=== PATIENT | female | born 1970 | race Caucasian/White ===

== ENCOUNTER → 2016-12-01 | Outpatient (CLI) | payer OTHER ==
[~2016-12-01] MED LIST: GADAVIST IV PRN; TAMO20TA9 PO
[2016-12-01 13:21] LABS: LYME DISEASE AB IGG NEG (NEG)
[2016-12-01 13:23] LABS: LYME DISEASE AB IGM NEG (NEG)
--- NOTE | 2016-12-01 14:29 | DIAGNOSTIC IMAGING REPORT ---
BRAIN COMBO FOR TRIGEMINAL CLINICAL HISTORY: Cranial nerve disorder. Trigeminal neuralgia. Headaches. History of breast cancer. COMPARISON STUDY: MRI of the brain September 07, 2015. TECHNIQUE: Utilizing 1.5 Cassia magnet, multiplanar, multiecho imaging of the brain was performed pre and postcontrast administration with thin cut imaging through the skull base. Injection of 7.5 cc of Gadavist IV was uneventful. FINDINGS: There are no areas of restricted diffusion. No acute intracranial hemorrhage, midline shift or mass effect is present. There is no intracranial masses or pathologic enhancement. Flow-voids for the major intracranial vessels are present. Ventricular system is normal. Basilar cisterns are patent. There are no extra-axial collections. The previously described upper cervical lymph nodes are similar to exam of September 07, 2015. No enlarged lymph nodes are identified. There is moderate mucosal thickening of the right anterior ethmoid air cells and mild mucosal thickening of the right frontal sinuses. Calvarial signal is maintained. No masses or abnormal enhancement are noted along the course of the trigeminal nerves. IMPRESSION: 1. No acute intracranial findings. 2. No intracranial masses or pathologic enhancement. 3. Moderate right anterior ethmoid sinus mucosal thickening. Electronically signed by: Ben Denis M.D. 12/01/2016 2:27 PM Dictated Date/Time: 12/01/2016 1:54 PM
== END | disposition home or self-care (01) ==
LOC: C.MRI 11:53
PROVIDERS: ATTEND Psychiatry & Neurology Neurology
DX: G52.9 Cranial nerve disorder, unspecified (principal); R59.0 Localized enlarged lymph nodes; R51 Headache; Z85.3 Personal history of malignant neoplasm of breast

== ENCOUNTER → 2017-02-13 | Outpatient (CLI) | payer OTHER ==
[~2017-02-13] MED LIST changes: -GADAVIST IV PRN; +TAMO20TA47 PO; -TAMO20TA9 PO
--- NOTE | 2017-02-16 12:28 | MAMMOGRAPHY REPORT ---
BILATERAL DIGITAL SCREENING MAMMOGRAM TOMOSYNTHESIS WITH CAD: 02/13/2017 CLINICAL HISTORY: Asymptomatic. Personal history of breast cancer. TECHNIQUE: Breast tomosynthesis in addition to standard 2D mammography was performed. Current study was also evaluated with a Computer Aided Detection (CAD) system. COMPARISON: Comparison is made to exams dated: 01/21/2016 mammogram, 01/19/2015 mammogram, 09/02/2013 m ammogram, 07/21/2012 mammogram, 04/14/2012 ultrasound, and 04/14/2012 mammogram - [facility] enter. BREAST COMPOSITION: The tissue of both breasts is almost entirely fatty. FINDINGS: No suspicious masses, calcifications, or areas of architectural distortion are noted in ei ther breast. There has been no significant interval change compared to prior exams. There are stable postsurgical changes in the right 12:00 breast from prior lumpectomy. IMPRESSION: ACR BI-RADS CATEGORY 2: BENIGN There is no mammographic evidence of malignancy. A 1 year screening mammogram is recommended. The pa tient will receive written notification of the results. Approximately 10% of breast cancers are not detected with mammography. A negative mammographic report should not delay biopsy if a clinically suggestive mass is present. Marjorie Meléndez M.D. /:02/13/2017 14:56:45 Numerologist: Angeline JOE)(M), [facility] letter sent: Normal 1/2 BI-RADS Code: ACR BI-RADS Category 2: Benign
== END | disposition home or self-care (01) ==
LOC: C.MAMM 13:02
PROVIDERS: ATTEND Surgery
DX: Z12.31 Encounter for screening mammogram for malignant neoplasm of breast (principal); Z85.3 Personal history of malignant neoplasm of breast; Z08 Encounter for follow-up examination after completed treatment for malignant neoplasm

== ENCOUNTER → 2017-07-09 | Day surgery (SDC) | payer OTHER ==
[2017-06-29 11:38] VITALS: Ht 162.6 cm; Wt 72.7 kg
[~2017-07-09] VITALS: Ht 162.6 cm; Wt 72.7 kg
[~2017-07-09] MED LIST changes: +ATROPINE SULFATE 0.1 MG/ML 5ML SYR IV PRN; +BUPIVACAINE/EPINEPHRINE 0.25% 1:200,000 30 ML VIAL ONE; +CEFAZOLIN 1000MG IV PUSH 5 ML IV SCH; +DEXAMETHASONE SOD INJ 4 MG/ML VIAL ONE; +EpHEDrine SULFATE INJ 50 MG/ML AMP IV PRN; +EpINEphrine INJ 1MG/ML AMP 1 MG/ML AMP ONE; +FENTANYL CITRATE INJ 50 MCG/1 ML 2 ML VIAL IV PRN; +FENTANYL CITRATE INJ 50 MCG/1 ML 2 ML VIAL ONE; +IBUP-103 PO; +KETO10TA PO; +LACTATED RINGER'S 1000ML 1,000 ML IV SCH; +LIDOCAINE HCL 2% 2 ML VIAL (20MG/ML) ONE; +METHYLPREDNISOLONE ACETATE 80 MG/ML VIAL ONE; +MIDAZOLAM HCL 1 MG/ML 2ML VIAL ONE; +ONDANSETRON INJ 2 MG/ML 2 ML VIAL IV PRN; +ONDANSETRON INJ 2 MG/ML 2 ML VIAL ONE; +OXYC-57 PO; +OXYCODONE/ACETAMINOPHEN 5-325 TAB PO PRN; +PROPOFOL IV EMULSION 10 MG/ML 20 ML VIAL IV ONE; +ROPIVACAINE 0.5% 5 MG/ML 30 ML VIAL ONE; +SODIUM CHLORIDE 0.9% 1000ML 1,000 ML IV SCH; -TAMO20TA47 PO
--- NOTE | 2017-07-09 07:22 | History & Physical Bridge - [place] ---
H&P Re-Evaluation Bridge Note: I have examined the patient, reviewed the History & Physical and in the interval since the performance of the History & Physical I have noted the following changes of clinical significance: No changes noted
--- NOTE | 2017-07-09 09:38 | [facility] Post Operative Brief Note ---
Immediate Operative Summary Operative Date Jul 09, 2017. Pre-Operative Diagnosis Adhesive capsulitis left shoulder Post-Operative Diagnosis Same as preop Procedure(s) Performed Left Shoulder Arthroscopic Capsular Release Surgeon Dr. Morales Model Builder Surgeon(s) Garry Wylie PA-C Estimated Blood Loss 5 mL Findings as above Specimens None Complication(s) None Disposition Recovery Room / PACU
--- NOTE | 2017-07-09 09:51 | Discharge Instructions-SurgCtr ---
Discharge Instructions Date of Service Jul 09, 2017. Visit Reason for Visit: Adhesive Capsulitis Of Shoulder Discharge Discharge Diagnosis / Problem: SAME ABOVE Discharge Goals Goal(s): Decrease discomfort, Improve function Activity Recommendations Activity Limitations: as noted below Lifting Limitations: gradually increase as tolerated Exercise/Sports Limitations: gradually increase as tolerated Shower/Bathe: tomorrow Driving or Machine Use: WHEN OUT OF THE SLING AND OFF OF PAIN MEDICATIONS Anesthesia . Post Anesthesia Instructions: If you have had General Anesthesia or IV Sedation: * Do not drive today. * Resume driving when surgeon permits. * Do not make important decisions or sign legal documents today. * Call surgeon for: 1. Temperature elevations greater than 101 degrees F. 2. Uncontrollable pain. 3. Excessive bleeding. 4. Persistent nausea and vomiting. 5. Medication intolerance (nausea, vomiting or rash). * For nausea and vomiting use only clear liquids such as: tea, soda, bouillon until nausea subsides, then gradually increase diet as tolerated. * If you have any concerns or questions, call your surgeon's office. If physician is unavailable and it is an emergency, call 911 or go to the nearest emergency room. . Diet Recommendations Home Diet: no limitations Fluid Restriction: None Procedures Procedures Performed: Left Shoulder Arthroscopic Capsular Release Pending Studies Studies pending at discharge: no Work Instructions Return To Work: 3 days Medical Emergencies . Who to Call and When: Medical Emergencies: If at any time you feel your situation is an emergency, please call 911 immediately. . Non-Emergent Contact Non-Emergency issues call your: Primary Care Provider Call Non-Emergent contact if: you have a fever, temperature is above 101.5 . . "Provider Documentation" section prepared by Garry Wylie. .
--- NOTE | 2017-07-09 10:18 | OPERATIVE REPORT ---
DATE OF OPERATION: 07/09/2017 PREOPERATIVE DIAGNOSIS: Adhesive capsulitis of the left shoulder. POSTOPERATIVE DIAGNOSIS: Same. PROCEDURE: Left shoulder diagnostic arthroscopy with extensive debridement, lysis of adhesions and manipulation under anesthesia. SURGEON: Dr. Nilson Morales. REGISTERED CLINICAL DIETITIAN: Lucas Wylie PA-C, whose assistance was necessary for positioning the arm and helping with instrumentation. ANESTHESIA: General with a left interscalene nerve block. COMPLICATIONS: None. CONDITION: Stable to PACU. INDICATIONS: The patient is a pleasant 46-year-old female who presented to my office with increasing pain and tightness of her left shoulder. Clinical examination was diagnostic for adhesive capsulitis of the left shoulder. After failing conservative treatment, she elected to undergo arthroscopy. OPERATION AND FINDINGS: On 07/09/2017 she arrived at [facility] for the above procedure. She was seen in the preoperative holding area and the operative extremity was identified and signed. She was given a preoperative antibiotic and a left interscalene nerve block. She was taken back to the operating room, laid on the table in supine position and put under general anesthesia. The left shoulder was then prepped and draped in sterile fashion. Time-out was done and the patient and operative extremity was properly identified. On preoperative physical examination, she had about 80 degrees of abduction and 30 degrees of external rotation. A gentle manipulation was done under anesthesia to help facilitate insertion of the arthroscope. The scope was then placed in the posterior portal. Diagnostic arthroscopy showed no cartilage damage to the humeral head or the glenoid. There was no tearing of the rotator cuff and the biceps tendon went through a normal size biceps julia mechanism. There was significant redness and inflammation of the rotator interval, the middle and anterior inferior glenohumeral ligaments. An anterior portal was made. A shaver was used to start a debridement of some of the intraarticular structures and some of the fraying of the tissue from the manipulation. An ablator was then used to do a complete lysis of adhesions including opening up the entire rotator interval and the undersurface of the coracoid with care not to disrupt the biceps julia mechanism. The middle and anterior inferior glenohumeral ligaments were then carefully released with care not to disrupt the subscapularis or the axillary nerve. A shaver was used to do a debridement and remove frayed inflamed soft tissue fragments back to stable margins. Significant time was spent controlling hemostasis and ensuring complete release of adhesions and debridement of loose soft tissues. A spinal needle was placed in the shoulder joint. Arthroscopic instruments were removed from the shoulder. A gentle manipulation was done once again under anesthesia and I was able to get full range of motion. The shoulder was then injected with 80 mg of Depo-Medrol and 5 mL of Marcaine. Portal sites were closed with 3-0 nylon. She was then placed in a soft compressive dressing and a regular arm sling. She was then extubated, transferred to a [facility] and taken to the postanesthesia care unit in stable condition. She tolerated the procedure well. I attest to the content of the Intraoperative Record and any orders documented therein. Any exception s are noted below.
[2017-07-09 11:14] VITALS: BP 100/67; O2SAT 96
--- NOTE | 2017-07-09 11:15 | Anesthesia Progress Nt - [facility] ---
Anesthesia Post Op Note Date & Time Jul 09, 2017 at 11:15 Vital Signs Pain Intensity: 0 Vital Signs Past 12 Hours Date Time Temp Pulse Resp B/P (MAP) Pulse Ox O2 Delivery O2 Flow Rate FiO2 07/09/17 10:25 36.8 75 16 106/71 (83) 97 Room Air 07/09/17 10:16 36.8 82 16 121/69 98 Room Air 07/09/17 10:15 121/69 07/09/17 10:13 87 15 99 07/09/17 10:13 85 15 07/09/17 10:10 106/71 07/09/17 10:08 74 20 100 07/09/17 10:08 74 20 07/09/17 10:05 105/75 07/09/17 10:03 81 14 07/09/17 10:03 80 14 100 07/09/17 10:02 83 16 07/09/17 10:02 84 16 100 07/09/17 10:00 111/70 07/09/17 09:57 87 16 100 07/09/17 09:57 86 16 07/09/17 09:55 108/79 07/09/17 09:52 90 17 07/09/17 09:52 88 17 100 07/09/17 09:50 139/70 07/09/17 09:47 112 8 07/09/17 09:47 37.1 99 20 121/89 99 Diffusion Mask 6 07/09/17 09:47 113 8 121/89 99 07/09/17 09:00 112/76 07/09/17 08:59 70 07/09/17 08:59 70 14 100 07/09/17 08:55 114/76 07/09/17 08:54 85 07/09/17 08:54 86 15 100 07/09/17 08:50 112/75 07/09/17 08:49 72 07/09/17 08:49 71 15 100 07/09/17 08:45 108/76 07/09/17 08:44 72 07/09/17 08:44 73 17 100 07/09/17 08:43 70 14 99 07/09/17 08:43 70 07/09/17 08:40 111/80 07/09/17 08:38 71 07/09/17 08:38 72 15 100 07/09/17 08:35 104/76 12/28/17 08:33 74 15 100 07/09/17 08:33 74 07/09/17 08:30 110/69 07/09/17 08:28 76 07/09/17 08:28 77 15 100 07/09/17 08:25 106/73 07/09/17 08:23 79 07/09/17 08:23 79 17 99 07/09/17 08:20 115/78 07/09/17 08:18 83 07/09/17 08:18 85 18 98 07/09/17 08:15 112/78 07/09/17 08:13 89 17 99 07/09/17 08:13 87 07/09/17 08:10 112/71 07/09/17 08:08 90 07/09/17 08:08 91 19 100 07/09/17 08:05 111/73 07/09/17 08:03 78 15 100 07/09/17 08:03 78 07/09/17 08:00 122/81 07/09/17 07:58 84 07/09/17 07:58 84 16 100 07/09/17 07:57 130/83 07/09/17 07:04 36.9 87 18 129/78 (95) 95 Room Air Notes Mental Status: alert / awake / arousable, participated in evaluation Pt Amnestic to Procedure: Yes Nausea / Vomiting: adequately controlled Pain: adequately controlled Airway Patency, RR, SpO2: stable & adequate BP & HR: stable & adequate Hydration State: stable & adequate Anesthetic Complications: no major complications apparent
== END | disposition home or self-care (01) ==
LOC: X.SURG 06:48
PROVIDERS: ATTEND Orthopaedic Surgery
DX: M75.02 Adhesive capsulitis of left shoulder (principal); Z87.891 Personal history of nicotine dependence

== ENCOUNTER → 2017-08-20 | Day surgery (SDC) | payer OTHER ==
[2017-08-17 15:08] VITALS: Ht 162.6 cm; Wt 72.7 kg
[~2017-08-20] VITALS: Ht 162.6 cm; Wt 72.7 kg
[~2017-08-20] MED LIST changes: +BUPIVACAINE 0.5 % 5 MG/1 ML PF 10ML VIAL ONE; -BUPIVACAINE/EPINEPHRINE 0.25% 1:200,000 30 ML VIAL ONE; -CEFAZOLIN 1000MG IV PUSH 5 ML IV SCH; +DEXAMETHASONE SOD INJ 4 MG/ML VIAL IV PRN; -EpINEphrine INJ 1MG/ML AMP 1 MG/ML AMP ONE; -KETO10TA PO; +KETOROLAC TROMETHAMINE 30 MG/ML VIAL IV. PRN; +LABETALOL HCL IV 5 MG/ML 20ML IV PRN; +METOCLOPRAMIDE HCL INJ 5 MG/ML 2 ML VIAL IV PRN; +MoRPHine SULFATE 10 MG/ML CARP/VIAL IV PRN; +PHENYLEPHRINE 100MCG/ML 5ML SYR IV PRN; +SUCCINYLCHOLINE CHLORIDE 20 MG/ML 10 ML VIAL IV ONE
--- NOTE | 2017-08-20 14:08 | [facility] Post Operative Brief Note ---
Immediate Operative Summary Operative Date Aug 20, 2017. Pre-Operative Diagnosis Left Shoulder Adhesive Capsulitis Post-Operative Diagnosis Same Procedure(s) Performed Left Shoulder Manipulation Under Anesthesia Surgeon Dr. Morales Acetylene Plant Operator Surgeon(s) Ezra Wylie PA-C Estimated Blood Loss None Findings Consistent with Post-Op Diagnosis Specimens None Anesthesia Type General Regional Complication(s) none Disposition Disposition: Recovery Room / PACU
[2017-08-20 14:13] VITALS: TEMP 36.4
--- NOTE | 2017-08-20 14:13 | Discharge Instructions-SurgCtr ---
Discharge Instructions Date of Service Aug 20, 2017. Visit Reason for Visit: Left Shoulder Adhesive Capsulitis Discharge Discharge Diagnosis / Problem: SAME ABOVE Discharge Goals Goal(s): Decrease discomfort, Improve function Activity Recommendations Activity Limitations: as noted below Lifting Limitations: none Exercise/Sports Limitations: none Shower/Bathe: tomorrow Anesthesia . Post Anesthesia Instructions: If you have had General Anesthesia or IV Sedation: * Do not drive today. * Resume driving when surgeon permits. * Do not make important decisions or sign legal documents today. * Call surgeon for: 1. Temperature elevations greater than 101 degrees F. 2. Uncontrollable pain. 3. Excessive bleeding. 4. Persistent nausea and vomiting. 5. Medication intolerance (nausea, vomiting or rash). * For nausea and vomiting use only clear liquids such as: tea, soda, bouillon until nausea subsides, then gradually increase diet as tolerated. * If you have any concerns or questions, call your surgeon's office. If physician is unavailable and it is an emergency, call 911 or go to the nearest emergency room. . Diet Recommendations Home Diet: no limitations Procedures Procedures Performed: Left Shoulder Manipulation Under Anesthesia Pending Studies Studies pending at discharge: no Work Instructions Return To Work: after follow-up (OR WHEN PAIN IS TOLERATED. EARLY THURSDAY ) Lifting Limitations: none Medical Emergencies . Who to Call and When: Medical Emergencies: If at any time you feel your situation is an emergency, please call 911 immediately. . Non-Emergent Contact Non-Emergency issues call your: Primary Care Provider Call Non-Emergent contact if: you have a fever, temperature is above 101.5 . . "Provider Documentation" section prepared by Garry Wylie. .
--- NOTE | 2017-08-20 14:35 | Anesthesia Progress Nt - [facility] ---
Anesthesia Post Op Note Date & Time Aug 20, 2017 at 14:35 Vital Signs Pain Intensity: 0 Vital Signs Past 12 Hours Date Time Temp Pulse Resp B/P (MAP) Pulse Ox O2 Delivery O2 Flow Rate FiO2 08/20/17 14:13 36.4 74 16 110/77 (88) 96 Room Air 08/20/17 13:57 67 17 100 08/20/17 13:57 70 08/20/17 13:55 89/63 08/20/17 13:52 68 08/20/17 13:52 66 19 100 08/20/17 13:50 106/76 08/20/17 13:47 70 14 100 08/20/17 13:47 70 08/20/17 13:45 121/81 08/20/17 13:42 72 08/20/17 13:42 73 98 08/20/17 13:41 109/72 08/20/17 12:41 36.5 81 16 120/80 (93) 99 Room Air Notes Mental Status: alert / awake / arousable, participated in evaluation Pt Amnestic to Procedure: Yes Nausea / Vomiting: adequately controlled Pain: adequately controlled Airway Patency, RR, SpO2: stable & adequate BP & HR: stable & adequate Hydration State: stable & adequate Anesthetic Complications: no major complications apparent
[2017-08-20 14:45] VITALS: BP 113/77; PULSE 77; O2SAT 94
--- NOTE | 2017-08-20 15:53 | OPERATIVE REPORT ---
DATE OF OPERATION: 08/20/2017 PREOPERATIVE DIAGNOSIS: Adhesive capsulitis of the left shoulder. POSTOPERATIVE DIAGNOSIS: Same. PROCEDURE: Manipulation under anesthesia of the left shoulder. SURGEON: Dr. Nilson Morales. BILINGUAL SALES ASSISTANT: None. ANESTHESIA: Sedation with a left interscalene nerve block. COMPLICATIONS: None. CONDITION: Stable to PACU. INDICATIONS: Pablo is a pleasant 47-year-old female who underwent an arthroscopic capsular release about 6 weeks ago. She initially did well with her shoulder started to freed up. She noticed less range of motion and significant pain. She elected to undergo manipulation under anesthesia with an intra-articular injection. DESCRIPTION OF PROCEDURE: On 08/20/2017, she arrived at [facility] for the above procedure. She was seen in the preoperative holding area and the operative extremity was identified and signed. She was given a left interscalene nerve block. She was taken back to the operating room, laid on the table in supine position and put under basic sedation. A time-out was done and the patient and operative extremity was properly identified. A gentle manipulation was done under anesthesia. There was a minimal amount of scar tissue that was broken up, but just enough to get her full range of motion. She had full abduction, internal and external rotation. The joint was then injected with 80 mg of Depo-Medrol and 5 mL of Marcaine. She was then taken to the postanesthesia care unit in stable condition. She tolerated the procedure well. I attest to the content of the Intraoperative Record and any orders documented therein. Any exception s are noted below.
== END | disposition home or self-care (01) ==
LOC: X.SURG 12:28
PROVIDERS: ATTEND Orthopaedic Surgery
DX: M75.02 Adhesive capsulitis of left shoulder (principal); Z90.710 Acquired absence of both cervix and uterus; Z98.890 Other specified postprocedural states; Z90.11 Acquired absence of right breast and nipple; Z82.49 Family history of ischemic heart disease and other diseases of the circulatory system; Z82.3 Family history of stroke; Z80.9 Family history of malignant neoplasm, unspecified

== ENCOUNTER → 2018-02-16 | Outpatient (CLI) | payer OTHER ==
[~2018-02-16] MED LIST changes: -ATROPINE SULFATE 0.1 MG/ML 5ML SYR IV PRN; -BUPIVACAINE 0.5 % 5 MG/1 ML PF 10ML VIAL ONE; -DEXAMETHASONE SOD INJ 4 MG/ML VIAL IV PRN; -DEXAMETHASONE SOD INJ 4 MG/ML VIAL ONE; -EpHEDrine SULFATE INJ 50 MG/ML AMP IV PRN; -FENTANYL CITRATE INJ 50 MCG/1 ML 2 ML VIAL IV PRN; -FENTANYL CITRATE INJ 50 MCG/1 ML 2 ML VIAL ONE; -KETOROLAC TROMETHAMINE 30 MG/ML VIAL IV. PRN; -LABETALOL HCL IV 5 MG/ML 20ML IV PRN; -LACTATED RINGER'S 1000ML 1,000 ML IV SCH; -LIDOCAINE HCL 2% 2 ML VIAL (20MG/ML) ONE; -METHYLPREDNISOLONE ACETATE 80 MG/ML VIAL ONE; -METOCLOPRAMIDE HCL INJ 5 MG/ML 2 ML VIAL IV PRN; -MIDAZOLAM HCL 1 MG/ML 2ML VIAL ONE; -MoRPHine SULFATE 10 MG/ML CARP/VIAL IV PRN; -ONDANSETRON INJ 2 MG/ML 2 ML VIAL IV PRN; -ONDANSETRON INJ 2 MG/ML 2 ML VIAL ONE; -OXYCODONE/ACETAMINOPHEN 5-325 TAB PO PRN; -PHENYLEPHRINE 100MCG/ML 5ML SYR IV PRN; -PROPOFOL IV EMULSION 10 MG/ML 20 ML VIAL IV ONE; -ROPIVACAINE 0.5% 5 MG/ML 30 ML VIAL ONE; -SODIUM CHLORIDE 0.9% 1000ML 1,000 ML IV SCH; -SUCCINYLCHOLINE CHLORIDE 20 MG/ML 10 ML VIAL IV ONE
[2018-02-16 12:58] LABS: BASO % 0.1 %; BASO ABS # 0.01 K/uL (0-0.2); EOS % 2.5 %; EOS ABS # 0.19 K/uL (0-0.5); HEMOGLOBIN 12.7 g/dL (12.0-16.0); IG# 0.02 K/uL (0.00-0.02); LYMPH % 35.1 %; LYMPH ABS # 2.65 K/uL (1.2-3.4); MEAN CORPUSCULAR HEMOGLOBIN 28.4 pg (25-34); MEAN CORPUSCULAR HGB CONC 33.4 g/dl (32-36); MEAN PLATELET VOLUME 9.3 fL (7.4-10.4); MONO % 8.3 %; MONO ABS # 0.63 K/uL (0.11-0.59); NEUT % 53.7 %; NEUT ABS # 4.06 K/uL (1.4-6.5); PLATELET COUNT 415 K/uL (130-400); RED CELL DISTRIBUTION WIDTH CV 13.8 % (11.5-14.5); RED CELL DISTRIBUTION WIDTH SD 42.5 fL (36.4-46.3); WHITE BLOOD COUNT 7.56 K/uL (4.8-10.8)
[2018-02-16 13:22] LABS: ALBUMIN 3.9 gm/dl (3.4-5.0); ALKALINE PHOSPHATASE 113 U/L (45-117); ALT/SGPT 23 U/L (12-78); AST/SGOT 11 U/L (15-37); BLOOD UREA NITROGEN 6 mg/dl (7-18); CARBON DIOXIDE 29 mmol/L (21-32); CREATININE 0.72 mg/dl (0.60-1.20); GLUCOSE 92 mg/dl (70-99); POTASSIUM 4.5 mmol/L (3.5-5.1); SODIUM 130 mmol/L (136-145); TOTAL PROTEIN 7.6 gm/dl (6.4-8.2)
== END | disposition home or self-care (01) ==
LOC: C.LABMFLN 10:09
PROVIDERS: ATTEND Psychiatry & Neurology Neurology
DX: G50.0 Trigeminal neuralgia (principal); Z51.81 Encounter for therapeutic drug level monitoring; Z79.899 Other long term (current) drug therapy

== ENCOUNTER → 2018-03-05 | Outpatient (CLI) | payer OTHER ==
[~2018-03-05] MED LIST changes: -OXYC-57 PO
--- NOTE | 2018-03-05 14:30 | MAMMOGRAPHY REPORT ---
BILATERAL DIGITAL SCREENING MAMMOGRAM TOMOSYNTHESIS WITH CAD: 03/05/2018 CLINICAL HISTORY: Asymptomatic. Personal history of breast cancer. TECHNIQUE: Breast tomosynthesis in addition to standard 2D mammography was performed. Current study w as also evaluated with a Computer Aided Detection (CAD) system. COMPARISON: Comparison is made to exams dated: 02/13/2017 mammogram, 01/21/2016 mammogram, 01/19/2015 ma mmogram, 09/02/2013 mammogram, 07/21/2012 mammogram, and 04/14/2012 mammogram - [facility]. BREAST COMPOSITION: The tissue of both breasts is almost entirely fatty. FINDINGS: No suspicious masses, calcifications, or areas of architectural distortion are noted in either breast . There has been no significant interval change compared to prior exams. Again noted are postsurgica l changes in the right 12:00 breast, including architectural distortion, surgical clips, and coarse b enign dystrophic calcifications at the lumpectomy bed. A linear scar marker overlies the right super ior breast. Small nodular asymmetry within the left medial anterior breast is stable dating back to at least the 2009 exam. IMPRESSION: ACR BI-RADS CATEGORY 2: BENIGN There is no mammographic evidence of malignancy. A 1 year screening mammogram is recommended.( 019) The patient will receive written notification of the results. Some breast cancers are not detected with mammography. A negative mammographic report should not preethi y biopsy if a clinically suggestive mass is present. Marjorie Meléndez M.D. ah/:03/05/2018 07:48:07 Supervisor Purification: RT Kalpana(Emily)(Donna)(BD), [facility] letter sent: Normal 1/2 BI-RADS Code: ACR BI-RADS Category 2: Benign
== END | disposition home or self-care (01) ==
LOC: C.MAMM 07:09
PROVIDERS: ATTEND Family Medicine
DX: Z12.31 Encounter for screening mammogram for malignant neoplasm of breast (principal); Z85.3 Personal history of malignant neoplasm of breast